=== PATIENT | female | born 1980 | race Caucasian/White ===

== ENCOUNTER 2017-11-22 10:30 | Inpatient (IN) | payer OTHER ==
[2017-11-25 07:43] VITALS: BMI 20.6
[2017-11-25] MEDS ORDERED: CITRIC ACID/SODIUM CITRATE 30 ML UNIT-DOSE CUP PO ONE (07:55)
[2017-11-25] MEDS ORDERED: ELECTROLYTE-148 SOLN 500 ML IV ONE (07:55)
[2017-11-25] MEDS ORDERED: ELECTROLYTE-148 SOLN 1,000 ML IV SCH (08:00)
--- NOTE | 2017-11-25 08:03 | HP ---
Past Medical History - Primary Care Physician PCP:: Fatmata Woodson - Admission Chief Complaint: 37 yrs ( AMA) , s/p previous c/section & Myomectomy, requests fro repeat c/section & voluntory sterlization History of Present Illness: PNC at [address] [place] [address] . . 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 Weeks Gestation by Dates: 39.5 ...EDC by Dates: 11/27/17 ...EDC by Sono: 11/27/17 Infectious Disease: No: AIDS, HIV, STD's, Tuberculosis Psych: No: Addictions, Anxiety Endocrine: No: Diabetes Mellitus - Past Surgical History Hx Myomectomy: Yes (2012 in ) Hx Transabdominal Cerclage: No - Smoking History Smoking history: Never smoked Have you smoked in the past 12 months: No - Alcohol/Substance Use Hx Alcohol Use: No History of Substance Use: reports: None Home Medications - Allergies Allergies/Adverse Reactions: Allergies Allergy/AdvReac Type Severity Reaction Status Date / Time No Known Allergies Allergy Verified 11/25/17 07:43 - Home Medications Home Medications: Ambulatory Orders Iron 1 tab PO DAILY 11/25/17 Vitamins (Sjr) - 1 tab PO DAILY 11/25/17 Physical Exam - Maternity Vital Signs: Vital Signs Temperature 98.6 F 08/09/18 07:26 Pulse Rate 86 11/25/17 07:26 Respiratory Rate 20 11/25/17 07:26 Blood Pressure 114/70 11/25/17 07:26 O2 Sat by Pulse Oximetry (%) Constitutional: Yes: Well Nourished, No Distress Eyes: Yes: WNL HENT: Yes: WNL, Normocephalic Neck: Yes: WNL Cardiovascular: Yes: WNL Lungs: Clear to auscultation Breast(s): Yes: WNL - Abdominal Exam/OB Fundal Height: 38 Number of Fetuses: Single Presentation: Vertex Contractions: No Monitor Mode: External Heart Rate (range): 140 Category: I Accelerations: Uniform Decelerations: None - Vaginal Exam/OB Vaginal Bleediing: No Speculum Exam: No Dilatation (cm): close Effacement (%): unefface Presentation: Transverse/Shoulder - Physical Exam Musculoskeletal: Yes: WNL Extremities: Yes: WNL Edema: Yes Edema: LLE: Trace, RLE: Trace Integumentary: Yes: Incision (subumblical midline scar), Tattoos Deep Tendon Reflex Grade: Normal +2 ...Motor Strength: WNL Psychiatric: Yes: WNL, Alert, Oriented - Labs Lab Results: Laboratory Tests 11/23/17 11/23/17 11/23/17 08:58 08:58 08:58 WBC 7.5 Hgb 12.9 Hct 37.1 Plt Count 192 PT with INR 10.80 INR 0.96 Sodium Potassium Chloride Carbon Dioxide BUN Creatinine Random Glucose Calcium AST ALT Urine Protein Negative RPR Titer 11/23/17 11/23/17 08:58 08:58 WBC Hgb Hct Plt Count PT with INR INR Sodium 141 Potassium 4.0 Chloride 108 H Carbon Dioxide 23 BUN 8 Creatinine 0.5 L Random Glucose 69 L Calcium 8.8 AST 19 ALT 16 Urine Protein RPR Titer Nonreactive Hemorrhage Risk Assessment - Risk Factors Medium Risk Factors: Yes: Prior , uterine surgery,or multiple laparotomies Risk Score: 1 Risk Level: Medium Risk Problem List - Problems (1) with 39 completed weeks gestation Code(s): Z3A.39 - 39 WEEKS GESTATION OF (2) Previous section Code(s): Z98.891 - HISTORY OF UTERINE SCAR FROM PREVIOUS SURGERY (3) with history of uterine myomectomy Code(s): O34.29 - MATERNAL CARE DUE TO UTERINE SCAR FROM H PREVIOUS SURGERY (4) AMA (advanced maternal age) multigravida 35+ Code(s): O09.529 - SUPERVISION OF ELDERLY MULTIGRAVIDA, UNSPECIFIED TRIMESTER (5) Multiparity Code(s): Z64.1 - PROBLEMS RELATED TO MULTIPARITY Assessment/Plan 37 years , , previous myomectomy & previous c/s requests for repeat c/s & Voluntory sterlization Plan Repeat c/s & BTL
[2017-11-25] MEDS ORDERED: OXYTOCIN 20 UNITS in 0.9% NS 40 UNIT/2,000 ML INFUS.BAG IV ONE (08:11)
[2017-11-25] MEDS ORDERED: PHENYLEPHRINE HCL 10 MG/1 ML SINGLE DOSE VIAL ONE (08:14)
[2017-11-25] MEDS ORDERED: ceFAZolin SODIUM 1 GM VIAL ONE ×2 (08:14→17:39)
[2017-11-25] MEDS ORDERED: morphine SULFATE/Preservative Free 0.5 MG/ML (1cc Syringe) ONE (08:14)
[2017-11-25] MEDS ORDERED: BUPIVACAINE 0.75% IN DEXTROSE/PF 2ML AMPULE NR ONE (08:14)
[2017-11-25] MEDS ORDERED: ACETAMINOPHEN 325 MG TABLET (FP) PO PRN (08:36)
[2017-11-25] MEDS ORDERED: ONDANSETRON 4 MG/2 ML VIAL IVPUSH PRN (08:36)
[2017-11-25 09:11] LABS: ARTERIAL BLD GAS O2 SATURATION 36.3 % (90-98.9); ARTERIAL BLOOD GAS BASE EXCESS -2.5 meq/l (-2-2); ARTERIAL BLOOD GAS PCO2 47.2 mmHg (35-45); ARTERIAL BLOOD GAS pH 7.32 (7.35-7.45)
[2017-11-25 09:16] LABS: ARTERIAL BLOOD GAS PO2 22.7 mmHg (80-100)
[2017-11-25 09:17] LABS: VENOUS PC02 39.4 mmHg (38-52); VENOUS PH 7.45 (7.32-7.42)
[2017-11-25 09:18] LABS: VENOUS PO2 40.3 mmHg (28-48)
--- NOTE | 2017-11-25 09:41 | PN ---
Delivery - Delivery Section: Repeat, Low Flap Transverse (BTL & Lysis of abdominal uterine adhesions) Type of Anesthesia: Spinal EBL (cc): 500 (intraop urine out put 250 ml brianna color ) Delivery, Single - Stages of Labor Date of Delivery: 11/25/17 Time of Delivery: 08:44 (cord around body ) Time Placenta Delivered: 08:46 Placenta: Yes: Manual Removal, Uterine Exploration - Condition of Infant News Video Editor/Inside Upholsterer Present: Yes Name: Marta Jacinto Infant Gender: Female Weight: 5 lb 15 oz Position: Left, OT Total Hours ROM (Hrs/Mins): 2 min - 1 Minute Total Score: 9 5 Minutes Total Score: 9 - [place] Feeding Plan Initial Plan: Elected not to breastfeed exclusively throughout hospitalization Remarks - Remarks Remarks: 37 yrs ( AMA) , Indication : 39.5 weeks, previous c/section & previous Myomectomy & Voluntory sterlization pnc at , [facility] gbs neg Intraop course uneventful
--- NOTE | 2017-11-25 09:47 | OP ---
Operative Note - Note: Operative Date: 11/25/17 Pre-Operative Diagnosis: 39.5 weeks, previous c/section, h/o Myomectomy, voluntory sterlization Operation: Repeat LFTC/Section, BTL ( lateral salpingectomy ) , Lysis of abdomal uterine adhesions Findings: 8.44 AM , baby Girl, 9/9, Lot, position, cord around body x1 , Wt 5'15" . abdomnal uterine adhesions lysis done Both ovaries normal both tubes , lateral salpingectomy done ligated & cut with plain 2/[address] Jacinto present in the room Iv ancef 1 gm ivpb preop given Surgeon: Fatmata Woodson Certified Lactation Educator: Cherrie Snyder Anesthesiologist/SAFETY CLOTHING AND EQUIPMENT DEVELOPER: Tho Laureano Anesthesia: Spinal Specimens Removed: cord blood for gas. cord blood. placenta. portion of Lt Tube. portion of Rt tube Estimated Blood Loss (mls): 500 Drains, Volume Out (mls): 250 (brianna color , plummer output ) Operative Report Dictated: Yes
[2017-11-25] MEDS ORDERED: METHYLERGONOVINE MALEATE 0.2 MG/1 ML AMP IM PRN (10:23)
--- NOTE | 2017-11-25 10:54 | SURG ---
Surgery Carrot Tier Note Carrot Tier: Cherrie Snyder PA-C Date of Service: 11/25/17 Diagnosis: 39.5 weeks, previous c/section, h/o Myomectomy, voluntory sterlization Procedure: Repeat LFTC/Section, BTL ( lateral salpingectomy ) , Lysis of abdomal uterine adhesions I was present for the entirety of the operative procedure. For further detail, please refer to operative report. Visit type - Case Type Case Type: Scheduled - Emergency Emergency Visit: No - New patient This patient is new to me today: Yes Date on this admission: 11/25/17
--- NOTE | 2017-11-25 11:08 | OP ---
DATE OF OPERATION: 11/25/2017 PREOPERATIVE DIAGNOSIS: A 39.5-week , previous section, history of myomectomy, and requests voluntary sterilization. OPERATION DONE: Repeat low flap transverse section, bilateral tubal ligation, lateral salpingectomy, and lysis of abdominal uterine adhesions. SURGEON: Fatmata Woodson MD SKATESMAN SURGEON: JAMES Noriega ANESTHESIOLOGIST: Tho Laureano MD ANESTHESIA: Spinal. FREIGHT ELEVATOR ERECTOR: , _Cosmina____ FINDINGS: This is a 37-year-old 4 para 1-0-2-1 at 39.5 weeks who requests for repeat . Patient not in labor. Baby girl, 9, 9, 5 pounds 15 ounces, LOT position. PROCEDURE: Patient was taken to the operating room table and spinal anesthesia was given. Prior to that, Sevilla catheter was placed, and abdomen was shaved and prepped. Patient was placed in supine position. Abdomen was painted and draped in the usual manner. A Pfannenstiel incision was made. She had a previous umbilical midline scar, but Pfannenstiel incision was made through skin and subcutaneous tissue. Anterior rectus sheath was incised transversely. Bleeding points were clamped and cauterized. The rectus muscle was from the rectus sheath. Parietal peritoneum could not be identified. There were abdominal uterine adhesions. So, except peritoneally, the was done. The bladder was pushed down and laterally both the sides rectus muscle was transected prior to the incision. Then, the incision was uterine lower segment was well isolated. Adhesions were cleaned and uterine incision was made transverse. Amniotic fluid was clear. Baby girl was delivered from LOT position at 8:44 a.m. There was cord around the baby's body, and it was untangled. Cord was clamped. Baby's was 9, 9. Weight was 5 pounds 15 ounces. Then, cord segment was collected for the blood gas, and then, cord blood was collected. Placenta was removed completely with the membranes. Uterine cavity was cleaned. Then, the uterine incision was closed in 2 layers. The first layer was a continuous locking with a Biosyn 0 continuous suture, second layer was a continuous intermittently locking with a Biosyn 0 suture. Hemostasis was verified. Then, the lateral abdominal wall and uterine adhesions, left side first, were clamped,cut and ligated, and then, the tube was identified. Ovary was normal. First, the left tube with the lateral fimbrial end was doubly ligated with a plain 2-0 catgut. Then, the portion of the tube above was cut and sent for the pathology examination, and the stump was cauterized. Hemostasis was verified. Then, the adhesions from the right lateral wall and uterus was clamped, cut, and the uterine side stump was suture ligated with a Biosyn 0 suture, and then, ligation of the side stump was done. Once the window in peritoneum was obtained, the right tube was identified with the fimbrial end, and the adhesions between the tube and ovary were lysed. This was done, and the lateral portion of the tube was freed, and it was doubly ligated with 2-0 plain catgut, and the portion of the tube above was cut and sent for pathology examination. Hemostasis was verified. Irrigation was done. Then, the abdominal closure was done. Sponge, instrument, needle counts were correct. Parietal peritoneum adhesions were brought together. Then, the muscles were approximated with Biosyn 0 suture. A pursestring suture was taken with the Biosyn. Hemostasis was verified in the rectus muscle and underneath the rectus sheath. Then, the rectus sheath was closed with Vicryl 0 suture, continuous sutures were taken, and then, subcutaneous tissue ,deep space was approximated first with vicryl 0 suture superficial space with a 3-0 Vicryl suture, and then, skin closed with intradermal 3-0 Biosyn. Pressure dressing was given. Estimated blood loss was 250 mL. Urine output intraperitoneally was 100 mL and was brianna color. IV Ancef 1 g prior to the incision was given. Patient tolerated the procedure well, and she was transferred to the recovery room in stable condition. Aliza [id number] MTDD
[2017-11-25] MEDS: IBUPROFEN 800 MG/8 ML IJ IVPB PRN ×2 (13:12→21:56)
[2017-11-25] MEDS ORDERED: CEFAZOLIN 1 GM in DEXTROSE 5%-WATER 100 ML IVPB SCH (16:00)
[2017-11-25] MEDS ORDERED: DEXTROSE 5%-WATER - 50 ML IVPB ONE (17:39)
[2017-11-25] MEDS: CEFAZOLIN 1 GM in DEXTROSE 5%-WATER - 50 ML IVPB SCH (17:46)
[2017-11-25] MEDS: OXYTOCIN 20 UNITS in 0.9% NS 20 UNIT/1,000 ML INFUS.BAG IV SCH (21:57)
[2017-11-26] MEDS ORDERED: DEXTROSE 5%-WATER - 50 ML IVPB ONE ×2 (02:42→09:14)
[2017-11-26] MEDS ORDERED: ceFAZolin SODIUM 1 GM VIAL ONE ×2 (02:42→09:14)
[2017-11-26] MEDS: CEFAZOLIN 1 GM in DEXTROSE 5%-WATER - 50 ML IVPB SCH ×2 (02:49→10:20)
[2017-11-26] MEDS ORDERED: oxyCODONE HCL 5 MG TABLET PO PRN ×2 (06:00)
--- NOTE | 2017-11-26 07:44 | PN ---
Progress Note (short form) - Note Progress Note: pod 1, s/p repeat c/s , doing well, has low abdominal cramps, no excess vaginal bleeding Last Vital Signs Temp Pulse Resp BP Pulse Ox 98.4 F 62 18 115/68 11/26/17 05:53 11/26/17 05:53 11/26/17 07:00 11/26/17 05:53 abdomen soft, no distension, no cva uterus firm incision dry, clean Sevilla clear urine no calf tenderness plan ambulate, advance diet, cbc
--- NOTE | 2017-11-26 08:00 | PN ---
Progress Note (short form) - Note Progress Note: Anesthesia Post-op Note Pt s/p C/S on 11/24/18 under spinal w/ duramorph. Pt reports that she is doing well. Able to move legs and reports normal motor and sensory function. Pain and nausea under control. Vital Signs Temperature 97.1 F L 11/26/17 07:49 Pulse Rate 65 11/26/17 07:49 Respiratory Rate 18 11/26/17 07:54 Blood Pressure 106/69 11/26/17 07:49 O2 Sat by Pulse Oximetry (%) Continue current management. OOB. Encourage ISS. Bowel regimen with pain medications.
[2017-11-26 08:37] LABS: BASO % 0.2 % (0-2.0); EOS % 1.3 % (0-4.5); HEMATOCRIT 37.8 % (32.4-45.2); LYMPH % 11.7 % (8-40); MCH 34.3 pg (25.7-33.7); MCHC 34.5 g/dl (32.0-36.0); MEAN CELL VOLUME 99.3 fl (80-96); MEAN PLT VOLUME 7.7 fl (7.5-11.1); MONO % 4.7 % (3.8-10.2); NEUT % 82.1 % (42.8-82.8); PLATELET COUNT 161 K/MM3 (134-434); RDW 13.8 % (11.6-15.6)
[2017-11-26] MEDS: PRENATAL VITAMINS W/ FOLIC ACID TABLET (FP) PO SCH (09:19)
[2017-11-26] MEDS: ACETAMINOPHEN 325 MG TABLET (FP) PO PRN ×2 (09:19→17:49)
[2017-11-26] MEDS: IBUPROFEN 800 MG/8 ML IJ IVPB PRN (09:19)
[2017-11-26] MEDS: SIMETHICONE 80 MG TAB.CHEW (FP) PO PRN ×2 (09:20→17:49)
[2017-11-26] MEDS: ENOXAPARIN NA (PORCINE) 40 MG/0.4 ML DISP.SYRIN SQ SCH (09:20)
[2017-11-26] MEDS ORDERED: DIPHTH,PERTUSS(ACELL),TET 0.5 ML DISP.SYRIN IM ONE (10:00)
[2017-11-26] MEDS ORDERED: BISACODYL 10 MG SUPP.RECT RC PRN (10:23)
[2017-11-26] MEDS: IBUPROFEN 600 MG TABLET (FP) PO PRN (17:48)
[2017-11-26] MEDS: SENNOSIDES/DOCUSATE COMBO (SENNA PLUS) TABLET (UD) PO PRN ×2 (20:57→21:23)
[2017-11-26] MEDS: FERROUS SO4 325 MG TABLET (FP) PO SCH (20:59)
--- NOTE | 2017-11-27 08:26 | PN ---
Post Progress Note - Subjective Subjective: 37 yo Para 2 status post repeat , seen and evaluated. Doing well. Post Day: 2 Type of Delivery: Repeat C/S Vital Signs: Vital Signs Temperature 98.0 F 11/26/17 21:00 Pulse Rate 68 11/26/17 21:00 Respiratory Rate 20 11/26/17 21:00 Blood Pressure 124/78 11/26/17 21:00 O2 Sat by Pulse Oximetry (%) Breast Exam: Yes: Soft Uterus: Yes: Fundus Firm Incision: Yes: Dressing dry and intact Abdomen/GI: Yes: Abdomen soft, Tolerating PO Lochia: Yes: Rubra Lochia, amount: Small Extremities: Yes: Calves non-tender Perineum: Yes: Intact Activity: Ambulating - Labs Labs: CBC WBC 12.0 K/mm3 (4.0-10.0) H 11/26/17 07:20 RBC 3.80 M/mm3 (3.60-5.2) 11/26/17 07:20 Hgb 13.0 GM/dL (10.7-15.3) 11/26/17 07:20 Hct 37.8 % (32.4-45.2) 11/26/17 07:20 MCV 99.3 fl (80-96) H 11/26/17 07:20 MCH 34.3 pg (25.7-33.7) H 11/26/17 07:20 MCHC 34.5 g/dl (32.0-36.0) 11/26/17 07:20 RDW 13.8 % (11.6-15.6) 11/26/17 07:20 Plt Count 161 K/MM3 (134-434) 11/26/17 07:20 MPV 7.7 fl (7.5-11.1) 11/26/17 07:20 Absolute Neuts (auto) 9.9 # 11/26/17 07:20 Neutrophils % 82.1 % (42.8-82.8) D 11/26/17 07:20 Lymphocytes % 11.7 % (8-40) D 11/26/17 07:20 Monocytes % 4.7 % (3.8-10.2) 11/26/17 07:20 Eosinophils % 1.3 % (0-4.5) D 11/26/17 07:20 Basophils % 0.2 % (0-2.0) 11/26/17 07:20 Nucleated RBC % 0 % (0-0) 11/26/17 07:20 Problem List - Problems (1) Status post repeat low transverse section Code(s): Z98.891 - HISTORY OF UTERINE SCAR FROM PREVIOUS SURGERY Assessment/Plan Status post repeat Stable Continue routine post op care
[2017-11-27] MEDS: OXYTOCIN 20 UNITS in 0.9% NS 20 UNIT/1,000 ML INFUS.BAG IV SCH (10:50)
[2017-11-27] MEDS: FERROUS SO4 325 MG TABLET (FP) PO SCH ×2 (10:51→21:04)
[2017-11-27] MEDS: PRENATAL VITAMINS W/ FOLIC ACID TABLET (FP) PO SCH (10:51)
[2017-11-27] MEDS: ENOXAPARIN NA (PORCINE) 40 MG/0.4 ML DISP.SYRIN SQ SCH (10:52)
[2017-11-27] MEDS: IBUPROFEN 600 MG TABLET (FP) PO PRN ×2 (11:05→20:19)
[2017-11-27] MEDS: SIMETHICONE 80 MG TAB.CHEW (FP) PO PRN ×2 (11:05→20:17)
[2017-11-27] MEDS: ACETAMINOPHEN 325 MG TABLET (FP) PO PRN ×2 (11:06→20:20)
[2017-11-27] MEDS: SENNOSIDES/DOCUSATE COMBO (SENNA PLUS) TABLET (UD) PO PRN (20:19)
[2017-11-28] MEDS: IBUPROFEN 600 MG TABLET (FP) PO PRN ×2 (06:26→10:28)
[2017-11-28] MEDS: ACETAMINOPHEN 325 MG TABLET (FP) PO PRN ×2 (06:27→10:28)
[2017-11-28] MEDS: SIMETHICONE 80 MG TAB.CHEW (FP) PO PRN ×2 (06:27→10:28)
[2017-11-28 07:55] VITALS: BP 119/78; PULSE 62; TEMP 98.2
[2017-11-28 08:03] LABS: BASO % 0.2 % (0-2.0); EOS % 1.7 % (0-4.5); HEMATOCRIT 35.4 % (32.4-45.2); HEMOGLOBIN 12.5 GM/dL (10.7-15.3); LYMPH % 16.3 % (8-40); MCH 34.7 pg (25.7-33.7); MCHC 35.2 g/dl (32.0-36.0); MEAN CELL VOLUME 98.8 fl (80-96); MEAN PLT VOLUME 7.3 fl (7.5-11.1); MONO % 5.9 % (3.8-10.2); NEUT % 75.9 % (42.8-82.8); PLATELET COUNT 193 K/MM3 (134-434); RBC 3.59 M/mm3 (3.60-5.2); RDW 13.7 % (11.6-15.6); WHITE BLOOD COUNT 9.3 K/mm3 (4.0-10.0)
[2017-11-28] MEDS: ENOXAPARIN NA (PORCINE) 40 MG/0.4 ML DISP.SYRIN SQ SCH (09:46)
[2017-11-28] MEDS: PRENATAL VITAMINS W/ FOLIC ACID TABLET (FP) PO SCH (09:46)
[2017-11-28] MEDS: FERROUS SO4 325 MG TABLET (FP) PO SCH (09:46)
--- NOTE | 2017-11-28 11:37 | DS ---
Physical Exam-REGIONAL SALES DIRECTOR Vital Signs: Vital Signs Temperature 98.2 F 11/28/17 07:53 Pulse Rate 62 11/28/17 07:53 Respiratory Rate 20 11/28/17 07:53 Blood Pressure 119/78 11/28/17 07:53 O2 Sat by Pulse Oximetry (%) Constitutional: Yes: Well Nourished Eyes: Yes: Conjunctiva Clear HENT: Yes: Atraumatic Neck: Yes: Supple Cardiovascular: Yes: Regular Rate and Rhythm Respiratory: Yes: Regular Gastrointestinal: Yes: Normal Bowel Sounds External Genitalia: Yes: Normal Vaginal Exam: Yes: Normal Cervix: Yes: Normal Uterus: Yes: Firm Breast(s): Yes: WNL Musculoskeletal: Yes: WNL Extremities: Yes: WNL Wound/Incision: Yes: Clean/Dry, Well Approximated Neurological: Yes: Alert, Oriented ...Motor Strength: WNL Psychiatric: Yes: Alert, Oriented Labs: CBC, BMP 11/28/17 07:15 Delivery - Delivery Section: Repeat, Low Flap Transverse (BTL & Lysis of abdominal uterine adhesions) Type of Anesthesia: Spinal Episiotomy/Laceration: None EBL (cc): 500 Delivery, Single - Stages of Labor Date of Delivery: 11/25/17 Time of Delivery: 08:44 Time Placenta Delivered: 08:46 Placenta: Yes: Manual Removal, Uterine Exploration - Condition of Infant It Security Administrator/Flight Communications Officer Present: [place]: Marta Jacinto Infant Gender: Female Weight: 5 lb 15 oz Position: Left, OT Total Hours ROM (Hrs/Mins): 1 min - 1 Minute Total Score: 9 5 Minutes Total Score: 9 - Feeding Plan Initial Plan: Elected not to breastfeed exclusively throughout hospitalization Discharge Summary Reason For Visit: SCHEDULED Current Active Problems AMA (advanced maternal age) multigravida 35+ (Acute) Multiparity (Acute) with 39 completed weeks gestation (Acute) with history of uterine myomectomy (Acute) Previous section (Acute) Status post repeat low transverse section (Acute) Procedures: Principal: Repeat Hospital Course: Routine post op care Condition: Stable - Instructions Diet, Activity, Other Instructions: Post Instructions Regresar a la clinica ([address]) en 2 semanas, llamar para la josie. DIET: Continue good diet high in protein, calcium, and iron rich foods. Drink at least eight (8) glasses of water daily in addition to other fluids. ___ Regular diet MEDICATIONS: Continue vitamins and iron as previously directed. Motrin and Tylenol may be taken for minor discomfort. ACTIVITY: Mild to moderate exercise may be started in two (2) weeks. Take frequent rest periods. Resume normal activity after six (6) week check up. WOUND CARE OF OPERATIVE SITE: Continue use of perineal bottle until vaginal discharge stops. Keep area clean. Shower daily. Keep abdominal wound dry. Report any drainage or redness to physician. Tub baths, tampons and douches are not permitted for [address]_ Breast feeding & or Bottle feeding BREAST CARE: (For those that are not ): If engorgement occurs: Wear tight fitting bra. Take Tylenol or Motrin for pain. Apply cold packs (ice in bags to each breast ) FAMILY PLANNING: There are many control alternatives to pursue and they should be discussed at your first office visit. You may resume sexual activity after your six (6) week check up. (Remember, is not a contraceptive) NEXT PHYSICIAN APPOINTMENT: Be certain to call for a one (1) week appointment, unless otherwise directed. Call Clinic or got to Emergency Dept if you have any of the following: Heavy vaginal bleeding Painful urination Leg pain Unusual odor noted to vaginal bleeding High fever Red streaking noted on breast Referrals: Fatmata Woodson MD [Staff Physician] - Disposition: HOME - Home Medications Comprehensive Discharge Medication List: Ambulatory Orders Iron 1 tab PO DAILY 11/25/17 Vitamins (Sjr) - 1 tab PO DAILY 11/25/17 Acetaminophen [Tylenol .Regular Strength -] 500 mg PO Q4H PRN #30 tablet Ibuprofen [Motrin -] 600 mg PO Q4H PRN #30 tablet 11/27/17 Vitamins (Sjr) - 1 tab PO DAILY #30 tablet 11/27/17
--- NOTE | 2017-11-30 15:27 | PATH ---
Surgical Pathology Report Patient Name: DENNY [facility]ENZU[facility]. Rec. 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 Specimen(s) Received A: PLACENTA B: RIGHT FALLOPIAN TUBE C: LEFT FALLOPIAN TUBE Clinical History , repeat scheduled , 39.5 gestational weeks Final Diagnosis A. PLACENTA, SECTION: 422 g THIRD TRIMESTER PLACENTA WITH TRIVASCULAR UMBILICAL CORD AND UNREMARKABLE PLACENTAL MEMBRANES. B. FALLOPIAN TUBE, RIGHT, PARTIAL EXCISION: UNREMARKABLE FALLOPIAN TUBE INCLUDING FIMBRIATED END AND LUMINAL PORTION. C. FALLOPIAN TUBE, LEFT, PARTIAL EXCISION: UNREMARKABLE FALLOPIAN TUBE INCLUDING FIMBRIATED END AND LUMINAL PORTION. Electronically Signed Nicole Hennessy M.D. Gross Description A. The specimen is received fresh labeled placenta and is a 422 gram, 28.0 x 17.0 x 2.2 cm. placenta with attached membranes and umbilical cord. The attached membranes are simons, translucent with focal opacities and insert marginally. The umbilical cord measures 16 cm. in length and averages 1.4 cm. in diameter. The cord inserts eccentrically, 5.5 cm. to the nearest margin. No true knots or strictures are identified. Cut surface of the umbilical cord reveals 3 vessels. The surface is negron-blue with minimal fibrin deposition and appropriate caliber vessels. The maternal surface is red-brown with focal defects. Sectioning reveals red-brown, spongy parenchyma. No lesions are identified. Behavioral Medical Director sections are submitted in three cassettes as follows: 1- membrane rolls and umbilical cord; 2-3- full thickness sections of placenta. B. Received in formalin labeled "right fallopian tube," is a 2 cm in length fimbriated fallopian tube. The outer surface is simons-landry and smooth. Sectioning reveals an unremarkable lumen. Behavioral Medical Director sections are submitted in 2 cassettes as follows: 1-fimbria; 2-cross sections of fallopian tube. C. Received in formalin labeled "left portion of fallopian tube," is a 2 cm in length fimbriated fallopian tube. The outer surface is landry purple and smooth. Sectioning reveals an unremarkable lumen. Behavioral Medical Director sections are submitted in 2 cassettes as follows: 1-fimbria; 2-cross sections of fallopian tube. 11/29/2017 [facility]2017
== END 2017-11-28 11:10 | disposition home or self-care (01) | DRG 540 ==
LOC: JLDR 11-25 06:15 → J3W 11-25 12:00
PROVIDERS: ADMIT Obstetrics & Gynecology; ATTEND Obstetrics & Gynecology
PROC: 10D00Z1 Extraction of Products of Conception, Low, Open Approach (ICD-10-PCS; principal; 2017-11-25)
PROC: 0UB70ZZ Excision of Bilateral Fallopian Tubes, Open Approach (ICD-10-PCS; 2017-11-25)
PROC: 0DNW0ZZ Release Peritoneum, Open Approach (ICD-10-PCS; 2017-11-25)
DX: O34.219 Maternal care for unspecified type scar from previous cesarean delivery (principal); N73.6 Female pelvic peritoneal adhesions (postinfective); Z3A.39 39 weeks gestation of pregnancy; Z37.0 Single live birth; Z30.2 Encounter for sterilization
CPT/HCPCS: 36415; 36600; 82803; 85025; 88302-TC; 88307-TC; 90715